=== PATIENT | female | born 1965 | race African-American/Black ===

== ENCOUNTER 2018-10-16 07:03 | Day surgery (SDC) | payer BC ==
[~2018-10-16] VITALS: Ht 175.3 cm; Wt 124.7 kg
[~2018-10-16 07:03] MED LIST: ALEVE220 M2 PO; LEVOTHYROXIN50 MCG PO; LORTAB 7.5 OR; LORTAB5 OR
[2018-10-16] MEDS ORDERED: VICODIN HP1 TA1 (07:16)
[2018-10-16] MEDS ORDERED: PERCOCET 10/31 COMBO PO (11:07)
[2018-10-16] MEDS ORDERED: ASPIRIN325 MG PO (11:07)
[2018-10-16 11:38] VITALS: BP 134/67
== END 2018-10-16 12:22 | disposition home or self-care (01) | DRG 489 ==
LOC: ORM 07:03
PROVIDERS: ATTEND Orthopaedic Surgery
PROC: 0SBC4ZZ Excision of Right Knee Joint, Percutaneous Endoscopic Approach (ICD-10-PCS; principal; 2018-10-16)
DX: S83.271A Complex tear of lateral meniscus, current injury, right knee, initial encounter (principal); S83.241A Other tear of medial meniscus, current injury, right knee, initial encounter; M94.261 Chondromalacia, right knee; M65.861 Other synovitis and tenosynovitis, right lower leg; E11.9 Type 2 diabetes mellitus without complications; F17.210 Nicotine dependence, cigarettes, uncomplicated; X58.XXXA Exposure to other specified factors, initial encounter
CPT/HCPCS: J0131